=== PATIENT | female | born 1970 | race Two or more races ===

== ENCOUNTER 2021-02-04 16:51 | Outpatient (REF) | payer MEDICARE, SELFPAY ==
[2021-02-04 17:43] LABS: MANUAL DIFF FLAG NO
[2021-02-04 17:56] LABS: Basophils Percent Auto 0.3 % (0-2); Eosinophils Absolute Auto 0.2 X10*3/uL (0.0-0.4); Eosinophils Percent Auto 1.5 % (0-4); Hematocrit 37.8 % (37-47); Hemoglobin 13.1 g/dl (12.0-16.0); Imm Gran Abs Auto 0.02 X10*3/uL (0.00-0.03); Imm Gran Pct Auto 0.2 % (0.0-0.4); Lymphocytes Absolute Auto 3.6 X10*3/uL (1.2-4.9); Lymphocytes Percent Auto 36.1 % (20-40); Mean Corpuscular HGB Conc 34.7 g/dl (31.0-35.0); Mean Corpuscular Hemoglobin 33.7 pg (27.0-33.0); Mean Corpuscular Volume 97.2 fL (80-98); Mean Platelet Volume 9.4 fL (9.4-12.3); Monocytes Absolute Auto 0.7 X10*3/uL (0.1-1.2); Monocytes Percent Auto 6.6 % (2-11); Neutrophils Absolute Auto 5.5 X10*3/uL (2.0-8.3); Neutrophils Percent Auto 55.3 % (45-73); Platelet Count 300 X10*3/uL (160-400); Red Blood Count 3.89 X10*6/uL (4.20-5.50); White Blood Count 9.9 X10*3/uL (4.8-10.8)
[2021-02-04 18:11] LABS: Alanine Aminotransferase 13 U/L (0-31); Aspartate Amino Transferase 20 U/L (5-31); Estimated Glomerular Filt Rate > 60
[2021-02-04 18:31] LABS: Syphilis Screen Nonreactive (Nonreactive)
[2021-02-04 18:33] LABS: TSH reflex Free T4 0.93 uIU/mL (0.32-4.0)
[2021-02-05 07:11] LABS: Estimated Average Glucose 97 mg/dL
[2021-02-05 22:34] LABS: HIV AB/AG Nonreactive (Nonreactive)
[2021-02-07 08:22] LABS: ~HepC Num1 0.13 S/CO (0.00-0.79); ~Hepatitis C Antibody Nonreactive (Nonreactive)
[2021-02-07 08:24] LABS: HIV Num 1 0.05 S/CO (0.00-0.99)
[2021-02-07 14:56] LABS: TS Negative Control Passed; TS Panel A 1; TS Panel B 2; TS Positive Control Passed; TSpotTB Negative (SeeBelow)
== END 2021-02-04 16:52 | disposition home or self-care (01) ==
LOC: HO.LAB 16:51
PROVIDERS: Visit Provider Internal Medicine Infectious Disease
DX: Z86.19 Personal history of other infectious and parasitic diseases (principal); Z13.29 Encounter for screening for other suspected endocrine disorder; Z11.59 Encounter for screening for other viral diseases; Z11.3 Encounter for screening for infections with a predominantly sexual mode of transmission; Z11.4 Encounter for screening for human immunodeficiency virus [HIV]; Z13.1 Encounter for screening for diabetes mellitus; Z11.1 Encounter for screening for respiratory tuberculosis
CPT/HCPCS: 36415; 82565; 83036; 84443; 84450; 84460; 85025; 86481; 86780; 86803; 87040; 87389